=== PATIENT | female | born 1955 | race Caucasian/White ===

== ENCOUNTER 2017-05-07 09:46 | Day surgery (SDC) | payer BC ==
[~2017-05-07] VITALS: Ht 175.3 cm; Wt 86.8 kg
[~2017-05-07 09:46] MED LIST: ASCO-96 PO; ASPI-496 PO; CALC-451 PO; GLUC15006 PO; MULT-516 PO
[2017-05-07 10:15] VITALS: BP 119/62
[2017-05-07] MEDS ORDERED: LACTATED RINGERS 1,000 ML IV SCH (10:19)
[2017-05-07] MEDS ORDERED: FENTANYL PF 100 MCG/2ML ONE (11:23)
[2017-05-07] MEDS ORDERED: MIDAZOLAM 1 MG/ML, 2ML ONE (11:23)
[2017-05-07] MEDS ORDERED: KETOROLAC 30 MG/1 ML ONE (12:27)
[2017-05-07] MEDS ORDERED: ONDANSETRON 2MG/ML, 2ML ONE ×2 (12:27→13:55)
[2017-05-07] MEDS ORDERED: DEXAMETHASONE 4 MG/ML, 1ML ONE (13:55)
[2017-05-07] MEDS ORDERED: PROPOFOL 10 MG/ML, 20ML ONE (13:55)
[2017-05-07] MEDS ORDERED: CEFAZOLIN 1,000 MG ONE (13:55)
[2017-05-07] MEDS ORDERED: HYDROcodone/APAP 7.5-325MG/15ML UDC ONE (14:58)
[2017-05-07] MEDS ORDERED: FENTANYL PF 100 MCG/2ML IV PRN (15:00)
[2017-05-07] MEDS ORDERED: hydrALAzine 20 MG/ML, 1ML IV PRN (15:00)
[2017-05-07] MEDS ORDERED: ACETAMINOPHEN 325 MG TABLET PO PRN (15:00)
[2017-05-07] MEDS ORDERED: HYDROcodone/APAP 7.5-325MG/15ML UDC PO PRN (15:00)
[2017-05-07] MEDS ORDERED: PROMETHAZINE 25 MG/ML, 1ML IV PRN (15:00)
[2017-05-07] MEDS ORDERED: MEPERIDINE/PF 25MG/0.5ML IVPush PRN (15:00)
[2017-05-07] MEDS ORDERED: EPHEDRINE 50 MG/ML, 1ML IVPush PRN (15:00)
[2017-05-07] MEDS ORDERED: OXYcodone 5 MG/5 ML ORAL.SOL UDC PO PRN (15:00)
[2017-05-07] MEDS ORDERED: ALBUTEROL SULFATE 2.5 MG/3 ML NPPB PRN (15:00)
[2017-05-07] MEDS ORDERED: DIAZEPAM 5 MG/ML, 2ML IVPush PRN (15:00)
[2017-05-07] MEDS ORDERED: ONDANSETRON 2MG/ML, 2ML IVPush PRN (15:00)
[2017-05-07] MEDS ORDERED: HYDROmorphone 1 MG/ML, 1ML IV PRN (15:00)
[2017-05-07] MEDS ORDERED: MIDAZOLAM 1 MG/ML, 2ML IV PRN (15:00)
[2017-05-07] MEDS ORDERED: LABETALOL 5MG/ML, 20ML IV PRN (15:00)
[2017-05-07] MEDS ORDERED: METOPROLOL 1 MG/ML, 5ML IV PRN (15:00)
== END 2017-05-07 16:55 | disposition home or self-care (01) ==
LOC: OUT 09:46
PROVIDERS: ATTEND Orthopaedic Surgery
DX: M20.12 Hallux valgus (acquired), left foot (principal); M77.42 Metatarsalgia, left foot; Z87.39 Personal history of other diseases of the musculoskeletal system and connective tissue; Z87.891 Personal history of nicotine dependence
CPT/HCPCS: 28292; 28308; 73660; 76001; C1713; J0690; J1100; J1885; J2250; J2405; J2704; J3010; J7120

== ENCOUNTER → 2019-03-30 | Outpatient (CLI) | payer BC | END | disposition home or self-care (01) | LOC: CFH 11:32 | PROVIDERS: ATTEND Nurse Practitioner Primary Care | DX: Z12.31 Encounter for screening mammogram for malignant neoplasm of breast (principal) | CPT/HCPCS: 77067 ==